=== PATIENT | female | born 1950 | race Caucasian/White ===

== ENCOUNTER 2022-05-11 11:19 | Day surgery (SDC) | payer MEDICARE, BC ==
[2022-05-10 12:59] VITALS: BMI 31.6
[2022-05-11 12:07] LABS: INR-International Normal Ratio 1.1; Prothrombin Time 11.4 sec (9.5-12.1)
[2022-05-11 12:08] LABS: Hemoglobin 7.4 g/dL (12.0-15.5); Mean Corpuscular HGB CONC 33.8 g/dL (32.0-36.0); Mean Corpuscular Hemoglobin 35.9 pg (27.0-33.0); Mean Corpuscular Volume 106.3 fl (81.6-98.3); Mean Platelet Volume 12.1 fl (7.4-10.4); Platelet Count 74 10x3/uL (150-450); RBC Distribution Width 19.8 % (11.5-14.5); Red Blood Cell (RBC) Count 2.06 10x6/uL (3.90-5.03)
[2022-05-11 12:10] LABS: MDiff Complete? YES
[2022-05-11 12:27] LABS: Band 8 % (5-11); Eosinophils 2 % (0-10); Lymphocytes 40 % (21-51); Metamyelocyte 1 % (0-0); Monocytes 11 % (0-10); Myelocyte 1 % (0-0); Neutrophil 36 % (42-75); Nucleated RBC 8 % (0); Reactive Lymphocytes 1 % (0-10)
[2022-05-11 12:29] LABS: Platelet Morphology Comment Appears Decreased; White Blood Cell (WBC) Count 3.8 10x3/uL (3.5-10.5)
[2022-05-11 12:30] LABS: Anisocytosis SLIGHT = 6-15 cells (100X) (0-5/hpf); Macrocytosis SLIGHT = 6-15 cells (100X) (0-5/hpf)
[2022-05-11 12:33] LABS: Polychromasia SLIGHT = 2-3 cells (100X) (0-2/hpf); Reflex for Review?? YES
[2022-05-11 12:36] LABS: Ovalocytes SLIGHT = 2-5 cells (100X) (0-1/hpf)
[2022-05-11 12:38] LABS: Tear Drops SLIGHT = 2-5 cells (100X) (0-1/hpf)
[2022-05-11] MEDS ORDERED: Lidocaine 1% PF 5 ML VIAL ONE ×2 (12:42)
[2022-05-11] MEDS ORDERED: Sodium Bicarbonate 2.5 MEQ/5 ML VIAL ONE (12:42)
[2022-05-11] MEDS ORDERED: Midazolam HCl 5 mg/5 ml Vial ONE (12:42)
== END 2022-05-11 14:16 | disposition home or self-care (01) ==
LOC: CSHCT 11:19
PROVIDERS: ATTEND Internal Medicine Hematology & Oncology
PROC: 07DQ3ZX Extraction of Sternum Bone Marrow, Percutaneous Approach, Diagnostic (ICD-10-PCS; principal; 2022-05-11)
PROC: 079T3ZX Drainage of Bone Marrow, Percutaneous Approach, Diagnostic (ICD-10-PCS; 2022-05-11)
DX: C79.52 Secondary malignant neoplasm of bone marrow (principal); C50.911 Malignant neoplasm of unspecified site of right female breast; D70.8 Other neutropenia; I10 Essential (primary) hypertension; J45.909 Unspecified asthma, uncomplicated; Z79.899 Other long term (current) drug therapy; Z88.8 Allergy status to other drugs, medicaments and biological substances; Z88.2 Allergy status to sulfonamides
CPT/HCPCS: 38222; 85025; 85060; 85097; 85610; 88184; 88185; 88237; 88264; 88280; 88305; 88311; 88313; 88341; 88342; 88360; 99152; J2250

== ENCOUNTER 2022-10-20 14:05 | Outpatient (CLI) | payer MEDICARE, BC ==
[~2022-10-20 14:05] MED LIST: Magnevist 469MG/ML 20 ML VIAL ONE
== END 2022-10-20 14:06 | disposition home or self-care (01) ==
LOC: CSHMRI 14:05
PROVIDERS: ATTEND Internal Medicine Hematology & Oncology
DX: M25.552 Pain in left hip (principal); C50.911 Malignant neoplasm of unspecified site of right female breast; C79.51 Secondary malignant neoplasm of bone; M70.62 Trochanteric bursitis, left hip; M70.61 Trochanteric bursitis, right hip; S76.012A Strain of muscle, fascia and tendon of left hip, initial encounter

== ENCOUNTER 2022-12-02 10:51 | Outpatient (CLI) | payer MEDICARE, BC | END 2022-12-02 10:52 | disposition home or self-care (01) | LOC: CSHRAD 10:51 | PROVIDERS: ATTEND Internal Medicine Hematology & Oncology | DX: M89.9 Disorder of bone, unspecified (principal); C50.919 Malignant neoplasm of unspecified site of unspecified female breast; C79.51 Secondary malignant neoplasm of bone | CPT/HCPCS: 72170; 73521 ==